=== PATIENT | female | born 1950 | race Caucasian/White ===

== ENCOUNTER → 2021-04-16 | Day surgery (SDC) | payer MEDICARE, OTHER ==
[~2021-04-16] VITALS: Ht 157.5 cm; Wt 54.4 kg
[~2021-04-16] MED LIST: ACYCLOVIR400 MG PO; BACLOFEN 10MG T10 MG PO; CLARITIN10 MG PO; COLESTIPOL HCL1 GM PO; PHOSLO667 MG PO; PROBIOTIC1 EAC1 PO; RESTASIS1 EACH OU; VITAMIN B COMP1 EACH PO
[2021-04-16 08:59] LABS: HCT 47.6 % (37.0-47.0); HGB 15.7 g/dl (12.5-16.0); MCH 30.7 pg (25.0-31.0); MPV 11.7 fL (6.0-9.5); RBC 5.12 M/uL (4.20-5.40); RDW 12.9 % (11.5-14.0); WBC 6.7 K/uL (4.0-10.5)
[2021-04-16 09:14] LABS: ALBUMIN 4.9 g/dL (3.4-5.0); BILIRUBIN - TOTAL 0.6 mg/dL (0.2-1.0); BUN/CREAT RATIO (CALC) 23.3 RATIO; CREATININE 0.9 mg/dL (0.51-0.95); GLOBULIN (CALCULATION) 3.6 g/dL; POTASSIUM 3.7 mmol/L (3.5-5.1); TOTAL PROTEIN 8.5 g/dL (6.4-8.2)
== END | disposition home or self-care (01) ==
LOC: FAS 07:30
PROVIDERS: Surgery
DX: K58.0 Irritable bowel syndrome with diarrhea (principal); K29.70 Gastritis, unspecified, without bleeding; K21.9 Gastro-esophageal reflux disease without esophagitis; K31.89 Other diseases of stomach and duodenum; Z79.82 Long term (current) use of aspirin; Z79.891 Long term (current) use of opiate analgesic; Z79.899 Other long term (current) drug therapy
CPT/HCPCS: 36415; 76705; 80053; 88305; J1610; J2704; J7120